=== PATIENT | female | born 1960 | race Caucasian/White ===

== ENCOUNTER 2016-10-15 15:50 | Emergency (ER) | payer OTHER ==
[2016-10-15] MEDS ORDERED: IBUPROFEN 800 MG TABLET PO STA (16:11)
[2016-10-15] MEDS ORDERED: IBUPROFEN 800 MG TABLET PO ONE (16:21)
== END 2016-10-15 17:46 | disposition home or self-care (01) ==
DX: S82.431A Displaced oblique fracture of shaft of right fibula, initial encounter for closed fracture (principal); M25.511 Pain in right shoulder; V80.010A Animal-rider injured by fall from or being thrown from horse in noncollision accident, initial encounter; Y93.52 Activity, horseback riding; Y99.8 Other external cause status
CPT/HCPCS: 73610; 99283; A9270

== ENCOUNTER 2023-05-28 17:38 | Emergency (ER) | payer OTHER ==
[2023-05-28] MEDS ORDERED: HYDROmorphone 1 MG/ML CARPUJECT IM STA (18:56)
--- NOTE | 2023-05-28 19:00 | ED Physician Documentation ---
History of Present Illness - Stated complaint Stated Complaint: LT ARM INJ - Chief complaint Chief Complaint: Ext Problem - Additonal information Additional information: 62-year-old female presents emergency department for evaluation of acute left forearm and wrist pain. She was accidentally pulled on the leash by her dog who weighs at least 70 pounds and she fell to the ground onto her left side. She did strike her head but there was no loss of consciousness. She is not anticoagulated. She has exquisite pain in the left forearm especially with any supination of the wrist. There is also moderate swelling over the distal radial prominence. She is right arm dominant. No open sores or lesions. Review of Systems Constitutional: reports: Reviewed and negative Respiratory: reports: Reviewed and negative GI: reports: Reviewed and negative PD PAST MEDICAL HISTORY - Past Medical History Past Medical History: No Cardiovascular: None Respiratory: None GI: None - Past Surgical History Past Surgical History: No - Present Medications Home Medications: Ambulatory Orders Medication Instructions Recorded Confirmed HYDROcod/ACETAM 5/325 [Raton 5/325] 1 tablet PO BID PRN #10 tablet 05/28/23 - Allergies Allergies/Adverse Reactions: Allergies Allergy/AdvReac Type Severity Reaction Status Date / Time No Known Drug Allergies Allergy Verified 10/15/16 16:02 - Social History Does the pt smoke?: No Smoking Status: Never smoker PD ED PE NORMAL - General General: Alert and oriented X 3, No acute distress - Back Back: No CVA TTP, No spinal TTP, Other - Extremities Extremities: Other (Left arm is held in flexion at the elbow. Tenderness with even minimal palpation of the dorsum of the wrist especially along the ulna and over the radial prominence. Neurovascularly intact otherwise. 2+ radial pulse. No obvious deformity or ecchymosis. No anatomic snuff box tenderness ) Results - Vitals Vitals: Vital Signs - 24 hr 05/28/23 17:41 Temperature 36.8 C Heart Rate 66 Respiratory 20 Rate Blood Pressure 117/86 H O2 Saturation 99 Oxygen O2 Source Room air - Rads (name of study) left wrist Relevant Findings:: Final report received left forearm Relevant Findings:: Final report received (No acute fracture or osseous lesion or dislocation) PD Medical Decision Making - ED course Complexity details: reviewed results, d/w patient ED course: 62-year-old female presents emergency department for evaluation of acute left forearm and wrist pain after ground-level fall. She fell directly on the wrist. There is a moderate swelling of the dorsum of the wrist of the radial prominence but exquisite pain was elicited with even mild palpation of the forearm and ulna. An x-ray as interpreted by the radiologist showed no fracture of the forearm or wrist. But given the pain out of proportion I have elected to place the patient in a splint. She will follow closely with her PCP at [facility] and obtain repeat imaging in 1 week versus referral to orthopedics for possibility of an occult fracture. I am recommending Tylenol and ibuprofen for discomfort. For more severe pain a limited amount of Raton is being sent to the [facility] in [place]. The usual emergent return precautions were as discussed for worsening symptoms I am prescribing a short course of short-acting opioid pain medication for this patient. I have reviewed the patients COUNSELLORS and no concerning findings were noted. I have discussed that the opioids are for short term therapy only, and will not be refilled from the ED. Departure - Departure Disposition: 01 Home, Self Care Clinical Impression: Contusion of left forearm Qualifiers: Encounter type: initial encounter Qualified Code(s): S50.12XA - Contusion of left forearm, initial encounter Contusion of left wrist Qualifiers: Encounter type: initial encounter Qualified Code(s): S60.212A - Contusion of left wrist, initial encounter Condition: Stable Instructions: ED Splint Care Fiberglass Follow-Up: Provider,Other [Primary Care Provider] - Prescriptions: HYDROcod/ACETAM 5/325 [Raton 5/325] 1 tablet PO BID PRN #10 tablet PRN Reason: Pain Comments: Jordyn after a fall today you have had pain along your forearm as well as on your wrist where there is some swelling. We did obtain x-rays of the forearm and wrist and as interpreted by the radiologist, there were no findings of fracture seen. I however you did have pain out of proportion. Even minimal movement or touch along the forearm was quite painful. In order to help manage the symptoms and because there is concern for occult or undiagnosed fracture we are placing you in a fiberglass splint. You do need to follow closely with your primary care provider this week. Ideally your x-rays would be repeated within the 7 to 10-day period. The splint should then be removed and symptoms reevaluated. If not markedly better you may benefit from referral to an orthopedist. General I recommend that you take Tylenol 500 mg with food 2-3 times a day or alternate with ibuprofen 600 mg also with food 2-3 times a day. For more severe pain I write a prescription for limited amount of Raton. Return to the ER if you find that you are having fevers, worsening pain with the splint, have numbness or tingling in your fingers or feel that the splint is inappropriately fitting. I am prescribing a short course of narcotic pain medication for you. These are potentially dangerous and addictive medications that should be used carefully. These medications may constipate you. Take an gder-tuz-ugrtqor stool softener (docusate) twice daily with plenty of water while taking these medications. If you go 24 hours without a bowel movement, take [id number]-posedwg miralax, per package instructions. Do not drink or drive while taking these medications. If you received narcotic or sedating medications while in the emergency department, do not drive for 24 hours. Store this medication in a safe, secure place and out of reach of children. It is a violation of federal law to give or sell this medication to another person or to use in a manner other than prescribed. The ED will not refill narcotic prescriptions, including prescriptions lost or stolen. To dispose of unwanted medications: 1. [facility] [address] in [place] has a medication drop box. They accept prescription medications (in pill form) Tuesday through Tuesday 9:00 a.m. to 5:00 p.m. 2. [facility] [employer] accepts prescription medications (in pill form only) for disposal year round. Call for more information. 3. Contact the [facility] for the next [facility] sponsored prescription drug collection event. , [phone], or [phone]; Note that many narcotic pain relievers also contain Tylenol/acetaminophen. Please ensure that your total dose of acetaminophen from all sources does not exceed 3 g (3000 mg) per day. Forms: PCP List
--- NOTE | 2023-05-28 19:09 | XRAY Report ---
PROCEDURE: Wrist 4 View LT INDICATIONS: Trauma TECHNIQUE: 3 views of the wrist were acquired. COMPARISON: None. FINDINGS: Bones: No fractures or dislocations. No suspicious bony lesions. Soft tissues: No suspicious soft tissue calcifications or masses. IMPRESSION: No acute bony abnormality. If there is anatomic snuff box tenderness, consider wrist immobilization a nd repeat radiographs in 10-14 days or cross-sectional imaging now. If pain persists with conservativ e management, consider repeat radiographs in 10-14 days or cross-sectional imaging. Reviewed by: Jayden Sales MD on 05/28/2023 7:07 PM PDT Approved by: Jayden Sales MD on 05/28/2023 7:07 PM PDT Station ID: [id number]
--- NOTE | 2023-05-28 19:24 | XRAY Report ---
PROCEDURE: Forearm LT INDICATIONS: forearm pain after fall; ulnar side TECHNIQUE: 2 views of the forearm were acquired. COMPARISON: AP and lateral FINDINGS: Bones: No fractures or dislocations. No suspicious bony lesions. Soft tissues: No suspicious soft tissue calcifications or masses. IMPRESSION: No acute bony abnormality. Reviewed by: Jayden Sales MD on 05/28/2023 7:22 PM PDT Approved by: Jayden Sales MD on 05/28/2023 7:22 PM PDT Station ID: [id number]
[2023-05-28 20:09] VITALS: BP 151/76; O2SAT 98
== END 2023-05-28 20:04 | disposition home or self-care (01) ==
LOC: ED 17:38
DX: S50.12XA Contusion of left forearm, initial encounter (principal); S60.212A Contusion of left wrist, initial encounter; W18.39XA Other fall on same level, initial encounter; Y93.K9 Activity, other involving animal care
CPT/HCPCS: 73090; 73110; 96372; 99283; J1170